=== PATIENT | male | born 1965 | race Caucasian/White ===

== ENCOUNTER 2019-08-28 08:39 | Outpatient (CLI) | payer MEDICARE, SELFPAY ==
[2019-08-28 08:54] LABS: Basophils Absolute Auto 0.06 K/mm3 (0.00-0.10); Basophils Percent Auto 0.6 % (0.0-1.0); Eosinophils Absolute Auto 0.37 K/mm3 (0.02-0.50); Eosinophils Percent Auto 3.8 % (1.0-6.0); Hematocrit 36.6 % (40.0-54.0); Hemoglobin 11.7 g/dL (14.0-18.0); Immature Granulocyte Absolute 0.06 K/mm3 (0.00-0.00); Immature Granulocyte Percent A 0.6 % (0.0-0.0); Lymphocytes Absolute Auto 1.82 K/mm3 (1.10-4.50); Lymphocytes Percent Auto 18.5 % (18.0-42.0); Mean Corpuscular Volume 87.6 fL (78.0-102.0); Mean Platelet Volume 8.8 fl (8.7-11.0); Monocytes Absolute Auto 0.85 K/mm3 (0.10-0.90); Monocytes Percent Auto 8.7 % (2.0-11.0); Neutrophils Absolute Auto 6.7 K/mm3 (1.7-7.2); Neutrophils Percent Auto 67.8 % (50.0-70.0); Platelet Count Result 458 K/mm3 (150-420); Red Blood Count 4.18 M/mm3 (4.70-6.10); Red Cell Distribution Width 13.5 % (11.6-14.4); White Blood Count 9.8 K/mm3 (4.8-10.8)
[2019-08-28 09:13] LABS: Creatinine Urine 181.48 mg/dL (40-278); MALB Creatinine Ratio 4.2 mg/g (0-30); Microalbumin Urine Random 7.8 mg/L
[2019-08-28 09:15] LABS: Hemoglobin A1C 7.4 % (<5.7)
[2019-08-28 09:43] LABS: BNP 21.5 pg/mL (0-100)
[2019-08-28 10:04] LABS: Alanine Aminotransferase 30 U/L (16-63); Albumin Level 3.3 g/dL (3.4-5.0); Alkaline Phosphatase 143 U/L (46-116); Anion Gap 11.1 mmol/L (7-16); Aspartate Amino Transferase 17 U/L (15-37); Bilirubin,Total 0.2 mg/dL (0.00-1.00); Blood Urea Nitrogen 16 mg/dL (7-18); Carbon Dioxide 32 mmol/L (21-32); Chloride 101 mmol/L (98-108); Cholesterol 181 mg/dL (0-200); Estimated Glomerular Filt Rate 53; Ferritin 48 ng/mL (26-388); Folic Acid 8.2 ng/mL (8.6->20); GGT 54 U/L (15-85); Glucose 130 mg/dL (70-99); HDL Direct 44 mg/dL (40-60); Iron 43 ug/dL (65-175); LDL Cholesterol Calculated 108 mg/dL (<130); Osmolality Calculated 293 mOsm/kg (285-295); Percent Iron Saturation 14 % (12-57); Potassium 4.1 mmol/L (3.5-5.1); Sodium 140 mmol/L (136-145); Total Protein 7.2 g/dL (6.4-8.2); Triglycerides 143 mg/dL (0-150); Vitamin B12 407 pg/mL (193-986)
[2019-08-31 20:48] LABS: CRP, High Sensitivity 6.3 mg/L (***)
[2019-09-01 11:27] LABS: Vitamin D 25 Hydroxy 28 ng/mL (30-100)
== END 2019-08-28 08:40 | disposition home or self-care (01) ==
PROVIDERS: PCP Family Medicine
DX: D64.9 Anemia, unspecified (principal); D50.9 Iron deficiency anemia, unspecified; E11.37X1 Type 2 diabetes mellitus with diabetic macular edema, resolved following treatment, right eye; E55.9 Vitamin D deficiency, unspecified; E78.5 Hyperlipidemia, unspecified; I50.9 Heart failure, unspecified; Z76.89 Persons encountering health services in other specified circumstances
CPT/HCPCS: 36415; 80053; 80061; 82043; 82306; 82607; 82728; 82746; 82977; 83036; 83540; 83550; 83880; 85025; 86141

== ENCOUNTER 2019-09-17 16:26 | Observation (INO) | payer MEDICARE, MEDICAID, SELFPAY ==
[2019-09-17] VITALS (10 sets, daily range): BP systolic 112–159; BP diastolic 68–92; PULSE 85–112; RESP 17–20; TEMP 36.4–36.7; O2SAT 94–99; BMI 41.3; BMI 42.4
--- NOTE | ~2019-09-17 | XR_ITS ---
EXAMINATION: XR chest 2V DATE: 09/17/2019 17:04 INDICATION: Emphysema and congestive heart failure presenting with shortness of breath TECHNIQUE: frontal and lateral views of the chest were obtained. COMPARISON: Chest radiograph dated 04/03/2019 FINDINGS: Persistent linear opacities in the left lower lung zone consistent with atelectasis/scarring. No new airspace opacities, pulmonary edema, pleural effusion or pneumothorax. The cardiomediastinal silhouet te is normal. Mild thoracic spondylosis with chronic mild anterior wedging of a few lower thoracic ve rtebral bodies. IMPRESSION: 1. Chronic mild atelectasis/scarring at the left lower lung zone. No acute cardiopulmonary disease. Reviewed, dictated and finalized at location A. IMPRESSION: 1. Chronic mild atelectasis/scarring at the left lower lung zone. No acute card iopulmonary disease.
--- NOTE | ~2019-09-17 | US_ITS ---
EXAMINATION: US venous doppler [facility] DATE: 09/18/2019 11:52 INDICATION: Bilateral lower limb swelling, shortness of breath TECHNIQUE: Garcia scale images without and with compression and Doppler images of the bilateral lower e xtremity veins were obtained. COMPARISON: None FINDINGS: The right common femoral vein, profunda femoral vein, femoral vein, popliteal vein, peroneal trunk, p osterior tibial veins, and greater saphenous vein are patent. The left common femoral vein, profunda femoral vein, femoral vein, popliteal vein, peroneal trunk, po sterior tibial veins, and greater saphenous vein are patent. IMPRESSION: 1. Patent bilateral lower extremity veins. No evidence of deep venous thrombosis. Reviewed, dictated and finalized at location A. IMPRESSION: 1. Patent bilateral lower extremity veins. No evidence of deep venous thrombosi s.
--- NOTE | 2019-09-17 16:32 | ECG_ITS ---
Measurements Intervals [place] Rate: 99 P: 75 [place]: 165 QRS: 24 QRSD: 103 T: 79 QT: 332 QTc: 428 Interpretive Statements SINUS RHYTHM DELAYED PRECORDIAL R/S TRANSITION BASELINE ARTIFACT- I, II, III, AVL, AVF BORDERLINE ECG Electronically Signed On 09-17-2019 17:29:02 CDT by Nicho Jurado D.O.
[2019-09-17 16:50] LABS: Basophils Absolute Auto 0.05 K/mm3 (0.00-0.10); Basophils Percent Auto 0.5 % (0.0-1.0); Eosinophils Absolute Auto 0.35 K/mm3 (0.02-0.50); Eosinophils Percent Auto 3.4 % (1.0-6.0); Hematocrit 33.5 % (40.0-54.0); Hemoglobin 10.6 g/dL (14.0-18.0); Immature Granulocyte Absolute 0.11 K/mm3 (0.00-0.00); Immature Granulocyte Percent A 1.1 % (0.0-0.0); Lymphocytes Percent Auto 12.5 % (18.0-42.0); Mean Corpuscular HGB Conc 31.6 g/dL (32.0-36.0); Mean Corpuscular Hemoglobin 27.7 pg (27.0-31.0); Mean Corpuscular Volume 87.7 fL (78.0-102.0); Mean Platelet Volume 8.9 fl (8.7-11.0); Monocytes Absolute Auto 1.03 K/mm3 (0.10-0.90); Monocytes Percent Auto 9.9 % (2.0-11.0); Neutrophils Absolute Auto 7.6 K/mm3 (1.7-7.2); Neutrophils Percent Auto 72.6 % (50.0-70.0); Platelet Count Result 335 K/mm3 (150-420); Red Blood Count 3.82 M/mm3 (4.70-6.10); Red Cell Distribution Width 13.9 % (11.6-14.4); White Blood Count 10.4 K/mm3 (4.8-10.8)
[2019-09-17 17:04] LABS: Partial Thromboplastin Time 29.2 SEC (22.3-31.6); Prothrombin Time 10.4 Seconds (9.64-11.0)
[2019-09-17 17:08] LABS: Alanine Aminotransferase 40 U/L (16-63); Albumin Level 3.3 g/dL (3.4-5.0); Alkaline Phosphatase 144 U/L (46-116); Anion Gap 9.3 mmol/L (7-16); Aspartate Amino Transferase 24 U/L (15-37); Bilirubin,Total 0.2 mg/dL (0.00-1.00); Blood Urea Nitrogen 38 mg/dL (7-18); Calcium 9.6 mg/dL (8.5-10.1); Carbon Dioxide 31 mmol/L (21-32); Chloride 101 mmol/L (98-108); Estimated Glomerular Filt Rate 41; Glucose 124 mg/dL (70-99); Lipase 255 U/L (73-393); Osmolality Calculated 294 mOsm/kg (285-295); Potassium 4.3 mmol/L (3.5-5.1); Sodium 137 mmol/L (136-145); Total Protein 7.6 g/dL (6.4-8.2)
[2019-09-17 17:10] LABS: Troponin I < 0.02 ng/mL (0.00-0.056)
[2019-09-17 17:12] LABS: BNP 30.3 pg/mL (0-100)
[2019-09-17] MEDS: IPRATROPIUM 0.5 MG/ALBUTEROL SULFATE 2.5 MG AMPUL.NEB 3 ML INHALATION ×2 (17:17→22:51)
--- NOTE | 2019-09-17 17:30 | ED.SOB ---
HPI - SOB/Dyspnea General Chief Complaint: Shortness of Breath/Dyspnea Stated Complaint: sent from doctor Source: patient Mode of arrival: ambulatory Limitations: no limitations History of Present Illness HPI Narrative: this is a 53-year-old gentleman presents from his doctor's office with some increasing peripheral edema mainly in his lower extremities apply 2+ pitting edema up to mid abel with history of COPD/asthma and has been short of breath. Denies chest pain, no fever chills no nausea vomiting no abdominal pain no diarrhea constipation. The patient's primary care physician notified our ER that he was sending over patient, in the primary care physician's office there was noted weight gain of [id number] and EKG was performed in the physician's office EKG as he described he was in atrial fibrillation with a rate of 143. Currently the patient has a history of COPD, has had a history of SVT and had a workup that showed that is related to atrial tachycardia, history of hypertension, asthma/ COPD, has a history of diabetes mellitus with a current A1c of 7.4 history of chronic renal failure with a baseline creatinine of 1.40, and history of CHF systolic dysfunction with a ejection fraction of 50 to 55%. Current EKG performed patient is in sinus rhythm with a rate of 93. MD elicited complaint: shortness of breath Pertinent past history: COPD, asthma, congestive heart failure and diabetes Onset (ago): day(s) Timing: constant Severity: moderate Exacerbating factors: nothing and exertion Relieving factors: oxygen, rest, bronchodilators, upright position and cool air Known history of: COPD Associated symptoms: denies other symptoms Related Data Allergies Allergy/AdvReac Type Severity Reaction Status Date / Time No Known Allergies Allergy Unverified 11/05/18 16:46 Review of Systems Review of Systems: All systems reviewed & are unremarkable except as noted in HPI and below PMFSH Past Medical History Medical History Asthma CHF (congestive heart failure) COPD (chronic obstructive pulmonary disease) Diabetes mellitus HTN (hypertension) Family History Family History Mother Hypertension Family history of alcoholism Father Family history of aortic aneurysm Social History Social History Smoking status: Former smoker Smoking end date: 04/01/15 Alcohol intake: never Exam Const: General: no acute distress and alert Orientation/consciousness: patient oriented x3 HENMT: Head: normal to inspection Eyes: Conjunctivae: conjunctivae normal Pupils: Equal, round and reactive pupils present Neck: Neck: normal visual inspection, no lymphadenopathy and no meningeal signs Chest: Chest palpation & inspection: normal inspection of the chest Resp: Effort & Inspection: normal respiratory effort Auscultation: clear to auscultation bilaterally and diminished lung sounds Cardio: Rate: regular rate Rhythm: regular rhythm GI: GI Palp: Yes Soft to palpation Percussion: Yes normal to percussion Auscultation: normal bowel sounds Back/Spine/Pelvis: Back: no CVA tenderness Skin: General skin exam: normal color Rashes: no rashes Neuro: General: patient oriented x3, moves all extremities and no meningeal signs Extrem: General: edema ( 2+ pitting edema up to mid abel bilaterally lower extremity) Psych: Mental Status: mental status grossly normal Thought content: Yes Normal thought content present Course Course Emergency Course: reassessment of patient patient appears comfortable received nebulizer treatment and advised that he was going to be admitted for observation. Vital Signs Vital signs: Vital Signs Temperature 36.7 C 09/17/19 16:37 Pulse Rate 95 09/17/19 16:37 Respiratory Rate 20 09/17/19 16:37 Blood Pressure 146/83 H 09/17/19 16:37 Pul
[2019-09-17] MEDS: FUROSEMIDE INJ 40 MG/4 ML VIAL IV PUSH (18:59)
[2019-09-17] MEDS: methylPREDNISolone SOD SUCC 125 MG VIAL IV PUSH (18:59)
--- NOTE | 2019-09-17 19:30 | ADMGEN ---
This patient, Reinaldo Caraballo, was admitted to 2nd Floor Room 227-2. Patient oriented to hospital policies and general routines including ID bracelet, bed and alarms, visiting hours, pain management, procedures, bathroom and other care routines, personal items, smoking policy, room service/diet, and visiting hours. Valuables list has been completed. Information on how to activate the Rapid Response Team has been discussed. Patient encouraged to report perceived risks to care and to ask questions if they do not understand what they are told or what they should do.
--- NOTE | 2019-09-17 19:57 | PC.NURSE ---
pt requested peanut butter and imani crackers, fruit cup, and diet soda. denies any pain or sob at this time. call light and belongings within reach
[2019-09-17 20:15] LABS: Troponin I < 0.02 ng/mL (0.00-0.056)
[2019-09-17 20:56] LABS: Glucose Point of Care 200 (65-105)
--- NOTE | 2019-09-17 21:05 | PC.NURSE ---
pt sitting up in bed, assisted with oxygen tubing to home cpap machine, denies any sob, or pain at this time.
--- NOTE | 2019-09-17 22:37 | PC.NURSE ---
pt sleeping, respirations even and regular, no evidence of distress noted at this time
[2019-09-17 23:22] LABS: Troponin I < 0.02 ng/mL (0.00-0.056)
--- NOTE | 2019-09-18 00:25 | PC.NURSE ---
pt sitting on side of bed, denies any sob or pain, ice chips given per request
--- NOTE | 2019-09-18 02:05 | PC.NURSE ---
pt resting in bed, no evidence of distress noted at this time
[2019-09-18 04:00] VITALS: BP 140/93; PULSE 100; RESP 20; O2SAT 95
--- NOTE | 2019-09-18 04:57 | PC.NURSE ---
pt sitting on side of bed watching tv, denies any sob or pain at this time
--- NOTE | 2019-09-18 07:41 | ECG_ITS ---
Measurements Intervals [place] Rate: 105 P: 72 [place]: 190 QRS: 60 QRSD: 104 T: 76 QT: 317 QTc: 420 Interpretive Statements SINUS TACHYCARDIA ATRIAL PREMATURE COMPLEXES DELAYED PRECORDIAL R/S TRANSITION BASELINE ARTIFACT- III, AVL, AVF ABNORMAL ECG Electronically Signed On 09-18-2019 6:58:40 CDT by Nicho Jurado D.O.
[2019-09-18 07:45] VITALS: BP 143/97; PULSE 106; RESP 20; TEMP 36.4; O2SAT 94
[2019-09-18 07:49] LABS: Glucose Point of Care 227 (65-105)
[2019-09-18 08:26] LABS: Basophils Absolute Auto 0.02 K/mm3 (0.00-0.10); Basophils Percent Auto 0.2 % (0.0-1.0); Hematocrit 35.8 % (40.0-54.0); Hemoglobin 11.3 g/dL (14.0-18.0); Immature Granulocyte Percent A 0.9 % (0.0-0.0); Lymphocytes Absolute Auto 0.55 K/mm3 (1.10-4.50); Lymphocytes Percent Auto 4.8 % (18.0-42.0); Mean Corpuscular HGB Conc 31.6 g/dL (32.0-36.0); Mean Corpuscular Hemoglobin 27.5 pg (27.0-31.0); Mean Corpuscular Volume 87.1 fL (78.0-102.0); Mean Platelet Volume 9.5 fl (8.7-11.0); Monocytes Absolute Auto 0.17 K/mm3 (0.10-0.90); Monocytes Percent Auto 1.5 % (2.0-11.0); Neutrophils Absolute Auto 10.6 K/mm3 (1.7-7.2); Neutrophils Percent Auto 92.6 % (50.0-70.0); Platelet Count Result 366 K/mm3 (150-420); Red Blood Count 4.11 M/mm3 (4.70-6.10); Red Cell Distribution Width 13.8 % (11.6-14.4); White Blood Count 11.4 K/mm3 (4.8-10.8)
[2019-09-18] MEDS: SPIRONOLACTONE 25 MG TABLET 100 MG PO (09:05)
[2019-09-18 09:06] LABS: Alanine Aminotransferase 40 U/L (16-63); Albumin Level 3.5 g/dL (3.4-5.0); Alkaline Phosphatase 142 U/L (46-116); Anion Gap 13.1 mmol/L (7-16); Aspartate Amino Transferase 25 U/L (15-37); Bilirubin,Total 0.3 mg/dL (0.00-1.00); Blood Urea Nitrogen 43 mg/dL (7-18); Carbon Dioxide 27 mmol/L (21-32); Chloride 98 mmol/L (98-108); Estimated CRCL calculation 72 ml/min; Estimated Glomerular Filt Rate 46; Glucose 209 mg/dL (70-99); Osmolality Calculated 292 mOsm/kg (285-295); Potassium 5.1 mmol/L (3.5-5.1); Sodium 133 mmol/L (136-145); Total Protein 7.6 g/dL (6.4-8.2)
[2019-09-18] MEDS: LOSARTAN POTASSIUM 50 MG TABLET 100 MG PO (09:06)
--- NOTE | 2019-09-18 09:11 | PC.NURSE ---
sitting on edge of bed up and independent in room, slight wood noted, wears 3 L NC oxygen as needed as per home dose, currenlty off, monitor ST noted
[2019-09-18] MEDS: ZAFIRLUKAST 20 MG TABLET PO (10:54)
[2019-09-18] MEDS: PANTOPRAZOLE 40 MG TABLET PO (10:54)
--- NOTE | 2019-09-18 10:54 | PHAR ---
MEDS FROM HOME IDENTIFIED tRELEGY ELLIPTA 100 MCG/62.5 MCG/25 MCG DALIRESP 500 MCG 1 TABLET DAILY ([facility])
[2019-09-18] MEDS: FUROSEMIDE INJ 40 MG/4 ML VIAL IV PUSH (11:01)
--- NOTE | 2019-09-18 11:02 | PC.NURSE ---
pateint requesting transfer to where furniture sander is in [place],hospitalist aware
--- NOTE | 2019-09-18 11:14 | PC.NURSE ---
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
[2019-09-18] MEDS: ROFLUMILAST 500 MCG TABLET PO (11:22)
[2019-09-18] MEDS: ENOXAPARIN 40 MG/0.4 ML SYRINGE SUB-Q (11:23)
[2019-09-18] MEDS: PHARMACIST COMMUNICATION ORDER 1 EACH XX (11:24)
--- NOTE | 2019-09-18 11:25 | PC.NURSE ---
Educated on fluid restriction and low sodium diet
--- NOTE | 2019-09-18 11:42 | PC.NURSE ---
[facility] accepts patient in transfer, no room assignment at this time
[2019-09-18 11:56] LABS: Glucose Point of Care 198 (65-105)
[2019-09-18 12:00] VITALS: PULSE 130; RESP 22; TEMP 36.6; O2SAT 94
--- NOTE | 2019-09-18 12:05 | PC.NURSE ---
noted elevation in heart rate to 120-140's, feeling anxious, hospitalist aware
--- NOTE | 2019-09-18 12:22 | PC.NURSE ---
Report to Pamela at [facility]
--- NOTE | 2019-09-18 12:23 | PM.SD ---
Same Day Admit/Disch: HPI History of Present Illness Chief complaint: COPD Narrative: Reinaldo Caraballo is a 53 year old male that was a direct admit from his primary care physician's office Dr. Zamudio. patient has a past medical history of COPD, SVT, hypertension, diabetes, chronic renal failure, congestive heart failure with EF of 50-55%. according to patient , for the last month he has developed edema in his lower extremities and also increase shortness of breath on exertion. Patient noted that he has gained approximately 30 lb within a month. He continuously used 4 L of nasal cannula due to his COPD but noted that his shortness of breath worsened on and exertion. He also noted that he has had lower extremity edema in the past and usually it resolves when he takes his Lasix. This time it did not resolve patient's acid maker is Dr. Osuna he is requesting that he be transferred to [facility] where his acid maker practices at. While patient was in the ED a chest x-ray was completed which was unremarkable, EKG indicated sinus tach troponin was negative. Current vital signs are 143/97, 106, 20, 97.6, 94% on 4 L nasal cannula. this patient has been accepted by [facility] the accepting physician is Dr. Cabello. Dr. Osuna will be consulted once he arrives. patient continues to complain of shortness of breath and noted that his condition has not improved since admission PMFSH Past Medical History Medical History Asthma CHF (congestive heart failure) COPD (chronic obstructive pulmonary disease) Diabetes mellitus HTN (hypertension) Family History Family History Mother Hypertension Family history of alcoholism Father Family history of aortic aneurysm Social History Social History Smoking status: Former smoker Tobacco type: cigarettes Smoking end date: 04/01/15 Alcohol intake: never Substance use: former Substance use type: crack/cocaine Last use: 2010 Gender identity (if verbalized by the patient): Male Spiritual care concerns: No Same Day Admit/Disch: Med Pre-admit Medications Home Medications Medication Instructions Recorded Confirmed Type albuterol sulfate [Ventolin HFA] 1 - 2 puff INHALATION QID 09/17/19 09/17/19 History diltiazem HCl [Cartia XT] 240 mg PO BID 09/17/19 09/17/19 History esomeprazole magnesium [Nexium 20 mg PO DAILY 09/17/19 09/17/19 History 24HR] fluticasone propionate 50 mcg INTRANASAL DAILY 09/17/19 09/17/19 History sjdjpzidsht-wtywzfkhv-yognmubc 1 inh INHALATION DAILY 09/17/19 09/17/19 History [Trelegy Ellipta] furosemide 40 mg PO QPM 09/17/19 09/17/19 History furosemide 60 mg PO QAM 09/17/19 09/17/19 History insulin aspart U-100 [Novolog 1 unit SUBCUT AC 09/17/19 09/17/19 History Flexpen U-100 Insulin] ipratropium-albuterol 3 ml INHALATION QID 09/17/19 09/17/19 History losartan 100 mg PO DAILY 09/17/19 09/17/19 History metformin 1,000 mg PO BID 09/17/19 09/17/19 History roflumilast [Daliresp] 500 mcg PO DAILY 09/17/19 09/17/19 History spironolactone 100 mg PO DAILY 09/17/19 09/17/19 History zafirlukast 20 mg PO Q12H 09/17/19 09/17/19 History Exam Narrative: Exam Narrative: General: obese with labored breathing HEENT: Normocephalic, atraumatic. PERRL, EOMI. Sclerae anicteric. Oral mucosa moist. Oropharynx clear. Neck: Supple. Respiratory: Lungs sounds with expiratory wheezing and diminished by lower lobes Cardiovascular: sinus tach Gastrointestinal: Abdomen is soft, nontender, and nondistended with positive bowel sounds. No organomegaly. Skin: Warm, dry, and slightly pale.. No rash or lesions on limited exam. Extremities: No cyanosis, clubbing, or edema. Radial and pedal pulses intact. Neurological: Alert. Cranial nerves 2-12 are grossly intact. No gross focal deficits to
[2019-09-18 12:29] VITALS: BP 147/86
[2019-09-18] MEDS: LORAZEPAM INJ 2 MG/ML VIAL 1 MG IV PUSH (12:38)
--- NOTE | 2019-09-18 12:54 | PC.NURSE ---
diltazem and ativan given as ordered, drowsy, more calm, heart ratae down to 105 at this time
--- NOTE | 2019-09-18 13:05 | PC.NURSE ---
Report to EMS for transfer, up date called to [facility], noted to have itches open a scab to left wrist area, covered with gauze
--- NOTE | 2019-09-18 23:09 | PM.EVENT ---
Event Note Event Note Event Note: Patient states that his edema and shortness of breath have not significantly improved overnight. He received 40 of Lasix IV last night. Intake matches output over 12 hours. He denies chest pain. Regular rhythm without murmur or gallop. Heart rate up to 107 this morning. Lungs clear to auscultation without increased work of breathing. Three to 4+ pitting edema in the lower extremities bilaterally. Extremities are warm dry and pink no erythema. If further diuresis cannot be affected by IV Lasix, he may need more evaluation by Cardiology and/or Nephrology. With an albumin of 3.3 nephrotic syndrome seems unlikely. Will obtain UA, urine protein, and rule out a PE. I have reviewed the chart and examined the patient. I discussed the patient's care with Josh Porter APN and agree with her assessment plan.
== END 2019-09-18 13:05 | disposition short-term general hospital (02) ==
LOC: CHSED 17:38 → CHS2ND 17:46
PROVIDERS: Admitting Provider Emergency Medicine; Emergency Provider Emergency Medicine; PCP Family Medicine; Visit Provider Emergency Medicine
DX: R60.0 Localized edema (principal); I13.0 Hypertensive heart and chronic kidney disease with heart failure and stage 1 through stage 4 chronic kidney disease, or unspecified chronic kidney disease; I50.22 Chronic systolic (congestive) heart failure; E11.22 Type 2 diabetes mellitus with diabetic chronic kidney disease; N18.9 Chronic kidney disease, unspecified; I47.1 Supraventricular tachycardia; J44.9 Chronic obstructive pulmonary disease, unspecified; Z99.81 Dependence on supplemental oxygen
CPT/HCPCS: 36415; 71046; 80053; 83690; 83735; 83880; 84484; 85025; 85610; 85730; 93005; 93970; 94640; 96372; 96374; 96375; 96376; 99285; A9270; G0378; J1650; J1815; J1940; J2060; J2930

== ENCOUNTER 2019-09-30 14:49 | Outpatient (CLI) | payer MEDICARE, SELFPAY ==
[2019-09-30 15:00] LABS: Basophils Absolute Auto 0.02 K/mm3 (0.00-0.10); Basophils Percent Auto 0.1 % (0.0-1.0); Eosinophils Absolute Auto 0.11 K/mm3 (0.02-0.50); Eosinophils Percent Auto 0.7 % (1.0-6.0); Hematocrit 36.2 % (40.0-54.0); Hemoglobin 11.5 g/dL (14.0-18.0); Immature Granulocyte Absolute 0.27 K/mm3 (0.00-0.00); Immature Granulocyte Percent A 1.8 % (0.0-0.0); Lymphocytes Absolute Auto 1.21 K/mm3 (1.10-4.50); Lymphocytes Percent Auto 7.9 % (18.0-42.0); Mean Corpuscular HGB Conc 31.8 g/dL (32.0-36.0); Mean Corpuscular Hemoglobin 28.3 pg (27.0-31.0); Mean Corpuscular Volume 88.9 fL (78.0-102.0); Monocytes Absolute Auto 0.79 K/mm3 (0.10-0.90); Monocytes Percent Auto 5.2 % (2.0-11.0); Neutrophils Absolute Auto 12.9 K/mm3 (1.7-7.2); Neutrophils Percent Auto 84.3 % (50.0-70.0); Platelet Count Result 370 K/mm3 (150-420); Red Blood Count 4.07 M/mm3 (4.70-6.10); Red Cell Distribution Width 14.1 % (11.6-14.4); White Blood Count 15.3 K/mm3 (4.8-10.8)
[2019-09-30 15:39] LABS: Anion Gap 10.5 mmol/L (7-16); Blood Urea Nitrogen 27 mg/dL (7-18); Calcium 9.4 mg/dL (8.5-10.1); Carbon Dioxide 33 mmol/L (21-32); Chloride 97 mmol/L (98-108); Estimated Glomerular Filt Rate 56; Glucose 206 mg/dL (70-99); Osmolality Calculated 293 mOsm/kg (285-295); Potassium 4.5 mmol/L (3.5-5.1); Sodium 136 mmol/L (136-145)
== END 2019-09-30 14:50 | disposition home or self-care (01) ==
PROVIDERS: PCP Family Medicine
DX: I50.21 Acute systolic (congestive) heart failure (principal)
CPT/HCPCS: 36415; 80048; 85025

== ENCOUNTER 2019-10-30 13:17 | Outpatient (RCR) | payer MEDICARE, MEDICAID, SELFPAY ==
[2019-10-30 14:37] VITALS: BP 103/75; PULSE 96; RESP 18; O2SAT 94; BMI 38.0
[2019-10-30 14:58] VITALS: PULSE 96
[2019-11-06 13:05] VITALS: PULSE 155
--- NOTE | 2019-11-06 13:05 | PCCPR ---
PT ARRIVED TO PULMONARY REHAB UPON VITAL SIGN ASSESSMENT, NOTED SPORADIC SPO2, PLACED PATIENT ON TELEMETRY AND REVEALED SINUS TACHYCARDIA WITH HR OF 155. PT ASYMPTOMATIC AND HAS STABLE B/P OF 120/78. CONFIRMS TAKING ALL PRESCRIBED MEDICATIONS TODAY. NOTIFIED DR. SAEED'S NURSE RODRIGO AND FAXED PRINTED TELEMETRY STRIPS. 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 WALLACE , RECENTLY WORE HEART MONITOR X30 DAYS, HIGHEST RATE NOTED WAS 111bpm. DR. SAEED RETURNED CALL AND ORDERED PATIENT TO ER, PT BEGRUDGINGLY AGREES, STATES, IM FINE, THEY WONT BE ABLE TO DO ANYTHING ABOUT IT. PT TRANSPORTED VIA W/C TO ER, JONNY PIZANO AND DR. KINSEY GIVEN REPORT.
== END 2019-11-06 15:00 | disposition home or self-care (01) ==
LOC: CHSCARD 13:17
PROVIDERS: PCP Family Medicine; Visit Provider Family Medicine
DX: J44.9 Chronic obstructive pulmonary disease, unspecified (principal); I50.30 Unspecified diastolic (congestive) heart failure; I48.91 Unspecified atrial fibrillation
CPT/HCPCS: 97150; G0424

== ENCOUNTER 2019-11-02 07:00 | Outpatient (CLI) | payer MEDICARE, SELFPAY ==
[2019-11-02 13:31] LABS: Anion Gap 10.9 mmol/L (7-16); Blood Urea Nitrogen 43 mg/dL (7-18); Calcium 10.2 mg/dL (8.5-10.1); Carbon Dioxide 31 mmol/L (21-32); Chloride 100 mmol/L (98-108); Estimated Glomerular Filt Rate 36; Glucose 96 mg/dL (70-99); Osmolality Calculated 294 mOsm/kg (285-295); Potassium 4.9 mmol/L (3.5-5.1); Sodium 137 mmol/L (136-145)
== END 2019-11-02 07:01 | disposition home or self-care (01) ==
PROVIDERS: PCP Family Medicine; Visit Provider Internal Medicine Cardiovascular Disease
DX: Z79.899 Other long term (current) drug therapy (principal)
CPT/HCPCS: 36415; 80048

== ENCOUNTER 2019-11-06 13:30 | Emergency (ER) | payer MEDICARE, MEDICAID, SELFPAY ==
--- NOTE | ~2019-11-06 | XR_ITS ---
EXAMINATION: XR chest 2V DATE: 11/06/2019 14:31 INDICATION: Tachycardia TECHNIQUE: PA and lateral views of the chest are obtained. COMPARISON: 09/17/2019 FINDINGS: The lungs are free of acute opacities. There is chronic subsegmental atelectasis of the lef t lung base. There is no pleural effusion or pneumothorax. The cardiomediastinal silhouette is normal . There is mild thoracic spondylosis. Cranial migration of the right humeral head with respect to the glenoid may reflect rotator cuff tear. IMPRESSION: 1. No acute cardiopulmonary abnormality. Reviewed, dictated and finalized at location B.
--- NOTE | 2019-11-06 13:39 | ED.SOB ---
HPI - SOB/Dyspnea General Chief Complaint: Arrhythmia/Palpitations Stated Complaint: SOB Time Seen by Provider: 11/06/19 13:39 Source: patient Mode of arrival: wheelchair Limitations: no limitations Related Data Home Medications Medication Instructions Recorded Confirmed Daliresp 500 mcg PO DAILY 09/17/19 11/06/19 Trelegy Ellipta 1 inh INHALATION DAILY 09/17/19 11/06/19 albuterol sulfate [Ventolin HFA] 1 - 2 puff INHALATION QID 09/17/19 11/06/19 diltiazem HCl [Cartia XT] 240 mg PO BID 09/17/19 11/06/19 esomeprazole magnesium [Nexium 20 mg PO DAILY 09/17/19 11/06/19 24HR] fluticasone propionate 50 mcg INTRANASAL DAILY 09/17/19 11/06/19 furosemide 40 mg PO QPM 09/17/19 11/06/19 furosemide 60 mg PO QAM 09/17/19 11/06/19 insulin aspart U-100 [Novolog 1 unit SUBCUT AC 09/17/19 11/06/19 Flexpen U-100 Insulin] ipratropium-albuterol 3 ml INHALATION QID 09/17/19 11/06/19 losartan 100 mg PO DAILY 09/17/19 11/06/19 metformin 1,000 mg PO BID 09/17/19 11/06/19 spironolactone 100 mg PO DAILY 09/17/19 11/06/19 zafirlukast 20 mg PO Q12H 09/17/19 11/06/19 Allergies Allergy/AdvReac Type Severity Reaction Status Date / Time No Known Allergies Allergy Unverified 11/05/18 16:46 Review of Systems Constitutional: Constitutional: Denies chills and Denies fever(s) Eyes: Eyes: Denies change in vision and Denies photophobia ENT: Denies dysphagia, Denies nasal congestion and Denies sore throat Cardiovascular: Cardiovascular: Denies chest pain, Reports rapid heart rate and Denies radiating jaw, neck or arm pain Respiratory: Respiratory: Denies cough, Denies dyspnea and Denies wheezing Gastrointestinal: Gastrointestinal: Denies abdominal pain, Denies nausea and Denies vomiting Genitourinary: Genitourinary: Denies hematuria, Denies dysuria and Denies urinary frequency Musculoskeletal: Musculoskeletal: Denies back pain, Denies arthralgias and Denies joint swelling Integumentary/Breasts: Skin/Breast: Denies pruritus, Denies erythema and Denies rash Neurologic: Denies vertigo, Denies dizziness, Denies syncope and Denies weakness Hematologic/Lymphatic: Hematologic/Lymphatic: Denies easy bleeding and Denies easy bruising Allergic/Immunologic: Allergic/Immunologic: Denies lip swelling, Denies throat swelling and Denies tongue swelling [facility] Past Medical History Medical History (Updated 11/06/19 @ 14:57 by Suresh Epstein MD) Asthma CHF (congestive heart failure) COPD (chronic obstructive pulmonary disease) Diabetes mellitus HTN (hypertension) On home oxygen therapy 3 L/m Surgical History Surgical History History of back surgery Social History Social History Smoking status: Former smoker Tobacco type: cigarettes Second hand tobacco smoke exposure: No Smoking end date: 04/01/15 Alcohol intake: never Substance use: former Substance use type: crack/cocaine Last use: 2010 Gender identity (if verbalized by the patient): Male Spiritual care concerns: No Exam Const: General: no acute distress and alert Nutritional Appearance: obese Orientation/consciousness: patient oriented x3 Limitations: no limitations HENMT: Face and sinus: normal facial exam Mouth: Yes moist mucous membranes Eyes: Conjunctivae: conjunctivae normal Pupils: Equal, round and reactive pupils present EOM: EOMs intact bilaterally Resp: Effort & Inspection: normal respiratory effort and not labored Auscultation: clear to auscultation bilaterally, no rales, no rhonchi and no wheezes Cardio: Rate: regular rate Rhythm: regular rhythm Heart sounds: no murmurs Skin: General skin exam: normal color, no jaundice and no pallor Rashes: no rashes Neuro: General: patient oriented x3, moves all extremities, no focal motor deficits and CN's II-XI intact bilaterally Speech: normal speech Extrem: General: normal to inspect
[2019-11-06 13:40] VITALS: BP 125/77; PULSE 90; RESP 20; TEMP 36.8; O2SAT 96
--- NOTE | 2019-11-06 13:40 | ECG_ITS ---
Measurements Intervals [place] Rate: 148 P: 20 [place]: 100 QRS: -9 QRSD: 105 T: 253 QT: 328 QTc: 516 Interpretive Statements ATRIAL FLUTTER/TACHYCARDIA WITH RAPID VENTRICULAR RESPONSE DELAYED PRECORDIAL R/S TRANSITION BORDERLINE ST-T WAVE ABNORMALITY- INF/HIGH LAT LEADS BASELINE WANDER- I, III ABNORMAL ECG Electronically Signed On 11-06-2019 15:55:11 CDT by Nicho Jurado D.O.
[2019-11-06 14:01] LABS: Basophils Absolute Auto 0.06 K/mm3 (0.00-0.10); Basophils Percent Auto 0.7 % (0.0-1.0); Eosinophils Absolute Auto 0.14 K/mm3 (0.02-0.50); Eosinophils Percent Auto 1.7 % (1.0-6.0); Hematocrit 36.3 % (40.0-54.0); Hemoglobin 11.4 g/dL (14.0-18.0); Immature Granulocyte Absolute 0.06 K/mm3 (0.00-0.00); Immature Granulocyte Percent A 0.7 % (0.0-0.0); Lymphocytes Percent Auto 16.5 % (18.0-42.0); Mean Corpuscular HGB Conc 31.4 g/dL (32.0-36.0); Mean Corpuscular Hemoglobin 26.6 pg (27.0-31.0); Mean Corpuscular Volume 84.6 fL (78.0-102.0); Monocytes Absolute Auto 0.94 K/mm3 (0.10-0.90); Monocytes Percent Auto 11.1 % (2.0-11.0); Neutrophils Absolute Auto 5.9 K/mm3 (1.7-7.2); Neutrophils Percent Auto 69.3 % (50.0-70.0); Platelet Count Result 381 K/mm3 (150-420); Red Blood Count 4.29 M/mm3 (4.70-6.10); Red Cell Distribution Width 14.4 % (11.6-14.4); White Blood Count 8.5 K/mm3 (4.8-10.8)
[2019-11-06 14:15] LABS: D Dimer 0.27 mg/L (0.19-0.50)
[2019-11-06 14:23] LABS: Alanine Aminotransferase 26 U/L (16-63); Albumin Level 3.4 g/dL (3.4-5.0); Alkaline Phosphatase 118 U/L (46-116); Anion Gap 11.1 mmol/L (7-16); Aspartate Amino Transferase 19 U/L (15-37); Bilirubin,Total 0.3 mg/dL (0.00-1.00); Blood Urea Nitrogen 40 mg/dL (7-18); Calcium 9.7 mg/dL (8.5-10.1); Carbon Dioxide 29 mmol/L (21-32); Chloride 101 mmol/L (98-108); Estimated CRCL calculation 62 ml/min; Estimated Glomerular Filt Rate 40; Glucose 89 mg/dL (70-99); Osmolality Calculated 292 mOsm/kg (285-295); Potassium 4.1 mmol/L (3.5-5.1); Sodium 137 mmol/L (136-145); Total Protein 7.2 g/dL (6.4-8.2)
[2019-11-06 14:28] LABS: Partial Thromboplastin Time 30.3 SEC (22.3-31.6); Prothrombin Time 10.8 Seconds (9.64-11.0)
[2019-11-06 14:29] LABS: Troponin I < 0.02 ng/mL (0.00-0.056)
[2019-11-06 14:30] LABS: BNP 35.5 pg/mL (0-100)
--- NOTE | 2019-11-06 14:35 | PC.NURSE ---
Pt up out of bed, disconnected himself from the monitor. This RN in room and pt states that he is leaving and doesnt want to be here. EDP in to speak with pt. Pt walked out of department. Pts radiology physician assistant called. edp speaking with DR. Duarte, o/c radiology physician assistant for [facility].
[2019-11-06 14:44] VITALS: PULSE 98; RESP 20; O2SAT 96
== END 2019-11-06 14:30 | disposition left against medical advice (07) ==
PROVIDERS: Emergency Provider Emergency Medicine; PCP Family Medicine
DX: I47.1 Supraventricular tachycardia (principal); I50.9 Heart failure, unspecified; J44.9 Chronic obstructive pulmonary disease, unspecified; E11.9 Type 2 diabetes mellitus without complications; Z99.81 Dependence on supplemental oxygen; Z87.891 Personal history of nicotine dependence; I11.0 Hypertensive heart disease with heart failure
CPT/HCPCS: 36415; 71046; 80053; 83880; 84484; 85025; 85380; 85610; 85730; 93005; 99283; 99284

== ENCOUNTER 2020-01-19 14:11 | Outpatient (CLI) | payer MEDICARE, SELFPAY ==
[2020-01-24 21:08] LABS: Blastomyces Antibody Negative (Negative)
[2020-01-26 17:29] LABS: Coccidioides Ab to F Ag (IgG) NEGATIVE; Coccidioides Ab to TP Ag (IgM) NEGATIVE
== END 2020-01-19 14:12 | disposition home or self-care (01) ==
PROVIDERS: PCP Family Medicine; Visit Provider Internal Medicine Pulmonary Disease
DX: R91.1 Solitary pulmonary nodule (principal)
CPT/HCPCS: 36415; 86606; 86612; 86635; 86698

== ENCOUNTER 2020-06-06 09:29 | Outpatient (CLI) | payer MEDICARE, MEDICAID, SELFPAY ==
--- NOTE | ~2020-06-06 | US_ITS ---
EXAMINATION: US venous doppler [facility] EXAM DATE: 06/06/2020 12:08 INDICATION: Left leg pain. TECHNIQUE: Multiple grayscale, color flow and Doppler images of the left lower extremity deep venous system were obtained and reviewed. Comparison is made to prior examination from 11/18/2019. FINDINGS: The left common femoral, femoral and profunda veins demonstrate normal color flow, respirat ory variation, augmentation and compressibility. Compressibility, color flow confirmed within the le ft popliteal, posterior tibial, peroneal, and greater saphenous veins. IMPRESSION: 1. No left lower extremity deep venous thrombosis. Reviewed, dictated and finalized at location B. 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
[2020-06-06 09:40] LABS: Basophils Absolute Auto 0.08 K/mm3 (0.00-0.10); Basophils Percent Auto 0.9 % (0.0-1.0); Eosinophils Absolute Auto 0.16 K/mm3 (0.02-0.50); Eosinophils Percent Auto 1.8 % (1.0-6.0); Hematocrit 40.3 % (40.0-54.0); Hemoglobin 12.6 g/dL (14.0-18.0); Immature Granulocyte Absolute 0.12 K/mm3 (0.00-0.00); Immature Granulocyte Percent A 1.4 % (0.0-0.0); Lymphocytes Absolute Auto 1.45 K/mm3 (1.10-4.50); Lymphocytes Percent Auto 16.7 % (18.0-42.0); Mean Corpuscular HGB Conc 31.3 g/dL (32.0-36.0); Mean Corpuscular Hemoglobin 27.7 pg (27.0-31.0); Mean Corpuscular Volume 88.6 fL (78.0-102.0); Mean Platelet Volume 8.4 fl (8.7-11.0); Monocytes Absolute Auto 0.66 K/mm3 (0.10-0.90); Monocytes Percent Auto 7.6 % (2.0-11.0); Neutrophils Absolute Auto 6.2 K/mm3 (1.7-7.2); Neutrophils Percent Auto 71.6 % (50.0-70.0); Platelet Count Result 425 K/mm3 (150-420); Red Blood Count 4.55 M/mm3 (4.70-6.10); Red Cell Distribution Width 13.2 % (11.6-14.4); White Blood Count 8.7 K/mm3 (4.8-10.8)
[2020-06-06 10:04] LABS: D Dimer 0.65 mg/L (0.19-0.50)
[2020-06-06 10:08] LABS: Alanine Aminotransferase 31 U/L (16-63); Albumin Level 3.4 g/dL (3.4-5.0); Alkaline Phosphatase 117 U/L (46-116); Anion Gap 8 mmol/L (8-16); Aspartate Amino Transferase 12 U/L (15-37); Bilirubin,Total 0.4 mg/dL (0.00-1.00); Blood Urea Nitrogen 35 mg/dL (7-18); Calcium 10.2 mg/dL (8.5-10.1); Carbon Dioxide 29 mmol/L (21-32); Chloride 102 mmol/L (98-108); Estimated Glomerular Filt Rate 41; Glucose 103 mg/dL (70-99); Osmolality Calculated 296 mOsm/kg (285-295); Potassium 4.2 mmol/L (3.5-5.1); Prostate Specific Antigen 2.1 ng/mL (< OR = 4.0); Sodium 139 mmol/L (136-145); Total Protein 7.6 g/dL (6.4-8.2)
== END 2020-06-06 09:30 | disposition home or self-care (01) ==
PROVIDERS: PCP Family Medicine; Visit Provider Family Medicine
DX: R79.1 Abnormal coagulation profile (principal); M79.605 Pain in left leg; I10 Essential (primary) hypertension; Z12.5 Encounter for screening for malignant neoplasm of prostate
CPT/HCPCS: 36415; 80053; 84153; 85025; 85380; 93971; G0103

== ENCOUNTER 2020-07-06 07:32 | Outpatient (CLI) | payer MEDICARE, SELFPAY ==
[2020-07-10 13:05] LABS: Blastomyces Antibody Negative (Negative)
[2020-07-13 16:56] LABS: Coccidioides Ab to F Ag (IgG) NEGATIVE; Coccidioides Ab to TP Ag (IgM) NEGATIVE
== END 2020-07-06 07:33 | disposition home or self-care (01) ==
LOC: CHSLAB 07:35
PROVIDERS: PCP Family Medicine
DX: R91.1 Solitary pulmonary nodule (principal)
CPT/HCPCS: 36415; 86606; 86612; 86635; 86698

== ENCOUNTER 2020-07-23 02:05 | Inpatient (IN) | payer MEDICARE, MEDICAID, SELFPAY ==
[2020-07-23] VITALS (10 sets, daily range): BP systolic 132–160; BP diastolic 83–97; PULSE 101–110; RESP 16–26; TEMP 36–36.8; O2SAT 91–95
--- NOTE | ~2020-07-23 | XR_ITS ---
EXAMINATION: XR chest 2V DATE: 07/23/2020 03:09 INDICATION: Dyspnea. TECHNIQUE: Frontal and lateral views of the chest were obtained. COMPARISON: Chest 2 views 11/06/2019, chest CT 01/14/2019 FINDINGS: There are mild airspace opacities in the lower lung zones. No pleural effusion or pneumotho rax. The heart size is normal. There is a left chest wall pacer with leads in the right atrium and ri ght ventricle. There are old healed bilateral rib fractures. IMPRESSION: 1. Mild airspace opacities in the lower lung zones, consistent with atelectasis versus pneumonia. Reviewed, dictated and finalized at location A.
--- NOTE | ~2020-07-23 | XR_ITS ---
EXAMINATION: XR chest 1V portable DATE: 07/24/2020 07:43 INDICATION: Hypoxia. Hypercapnia. Shortness of breath. TECHNIQUE: A single frontal view of the chest was obtained. COMPARISON: Chest 2 views 07/23/2020, chest CT 01/14/2019 FINDINGS: There are mild airspace opacities in the lower mid and lower lung zones. No pleural effusio n or pneumothorax. Cardiomegaly is noted. There is a left chest wall pacer with leads in the right at rium and right ventricle. IMPRESSION: 1. Worsened mild airspace opacities in the mid and lower lung zones, consistent with pulmonary edema versus pneumonia. 2. Cardiomegaly. Reviewed, dictated and finalized at location A.
--- NOTE | 2020-07-23 02:12 | ED.WEAKNESS ---
HPI - Weakness General Chief complaint: Shortness of Breath/Dyspnea Stated complaint: HIGH BLOOD SUGAR Time Seen by Provider: 07/23/20 02:12 Source: patient Mode of arrival: EMS Limitations: no limitations History of Present Illness HPI Narrative: 54-year-old man with a history of type 2 diabetes, COPD, congestive heart failure, and chronic renal failure brought to the emergency department today by EMS after being called for high blood sugars. Patient states that he has not felt well for the last few days mostly fatigue and a cough. He states that he has not been taking his medications as he usually does. He denies nausea, vomiting, chest pain, worsening shortness of breath, increased edema, dysuria, hematuria, diarrhea, fevers or rash. He denies any recent sick exposures. Insulin deglutec 35 units @ hs (50 units if taking prednisone) SSI: AC <200 No NovoLog 201-250 18 units 251-300 20 units 301-350 25 units 351-400 30 units Complaint: generalized weakness Onset (ago): day(s) (2-3) Duration: constant and progressively worsening Location: generalized Migration: none Severity: mild Relieving factors: rest Exacerbating factors: exertion Associated symptoms: denies other symptoms Related Data Home Medications Medication Instructions Recorded Confirmed Trelegy Ellipta 1 inh INHALATION DAILY 09/17/19 07/23/20 albuterol sulfate [Ventolin HFA] 1 - 2 puff INHALATION QID 09/17/19 07/23/20 diltiazem HCl [Cartia XT] 240 mg PO BID 09/17/19 07/23/20 esomeprazole magnesium [Nexium 20 mg PO DAILY 09/17/19 07/23/20 24HR] fluticasone propionate 50 mcg INTRANASAL DAILY 09/17/19 07/23/20 furosemide 40 mg PO QPM 09/17/19 07/23/20 furosemide 80 mg PO QAM 09/17/19 07/23/20 insulin aspart U-100 [Novolog 1 unit SUBCUT AC 09/17/19 07/23/20 Flexpen U-100 Insulin] ipratropium-albuterol 3 ml INHALATION QID PRN 09/17/19 07/23/20 losartan 100 mg PO DAILY 09/17/19 07/23/20 metformin 1,000 mg PO BID 09/17/19 07/23/20 spironolactone 100 mg PO DAILY 09/17/19 07/23/20 zafirlukast 20 mg PO Q12H 09/17/19 07/23/20 glipizide 10 mg PO DAILY 07/23/20 07/23/20 insulin degludec [Tresiba See Rx Instructions .ROUTE .COMPLEX 07/23/20 07/23/20 FlexTouch U-100] ropinirole See Rx Instructions .ROUTE .COMPLEX 07/23/20 07/23/20 vardenafil 20 mg PO PRN PRN 07/23/20 07/23/20 Allergies Allergy/AdvReac Type Severity Reaction Status Date / Time No Known Allergies Allergy Unverified 11/05/18 16:46 Review of Systems Constitutional: Constitutional: Denies chills, Reports fatigue, Denies fever(s) and Reports weakness Eyes: Eyes: Denies change in vision and Denies photophobia ENT: Denies dysphagia, Denies nasal congestion and Denies sore throat Cardiovascular: Cardiovascular: Denies chest pain and Denies radiating jaw, neck or arm pain Respiratory: Respiratory: Reports cough, Reports dyspnea and Denies wheezing Gastrointestinal: Gastrointestinal: Denies abdominal pain, Denies diarrhea, Denies nausea and Denies vomiting Genitourinary: Genitourinary: Denies hematuria and Denies dysuria Musculoskeletal: Musculoskeletal: Denies back pain, Denies arthralgias and Denies joint swelling Integumentary/Breasts: Skin/Breast: Denies pruritus, Denies erythema and Denies rash Neurologic: Denies vertigo, Denies dizziness and Denies syncope Hematologic/Lymphatic: Hematologic/Lymphatic: Denies easy bleeding and Denies easy bruising Allergic/Immunologic: Allergic/Immunologic: Denies lip swelling and Denies throat swelling [facility] Past Medical History Medical History Asthma CHF (congestive heart failure) COPD (chronic obstructive pulmonary disease) Diabetes mellitus HTN (hypertension) On home oxygen therapy 3 L/m Surgical History Surgical History History of back surgery Family History Family History (Reviewed 09/17/19 @ 17:35 by Juan Pack
--- NOTE | 2020-07-23 02:14 | ECG_ITS ---
Measurements Intervals [place] Rate: 108 P: SD: 0 QRS: -45 QRSD: 175 T: 82 QT: 379 QTc: 509 Interpretive Statements ELECTRONIC VENTRICULAR PACEMAKER UNDERLYING SINUS OR ECTOPIC ATRIAL TACHYCARDIA NO FURTHER INTERPRETATION IS POSSIBLE ABNORMAL ECG Electronically Signed On 07-24-2020 7:32:00 CDT by Nicho Jurado D.O.
[2020-07-23 02:40] LABS: Glucose Point of Care > 450 (65-105)
[2020-07-23 03:11] LABS: Basophils Absolute Auto 0.06 K/mm3 (0.00-0.10); Basophils Percent Auto 0.8 % (0.0-1.0); Eosinophils Absolute Auto 0.12 K/mm3 (0.02-0.50); Eosinophils Percent Auto 1.6 % (1.0-6.0); Hematocrit 40.6 % (40.0-54.0); Hemoglobin 12.6 g/dL (14.0-18.0); Immature Granulocyte Absolute 0.09 K/mm3 (0.00-0.00); Immature Granulocyte Percent A 1.2 % (0.0-0.0); Lymphocytes Absolute Auto 0.91 K/mm3 (1.10-4.50); Lymphocytes Percent Auto 11.8 % (18.0-42.0); Mean Corpuscular Hemoglobin 28.3 pg (27.0-31.0); Mean Corpuscular Volume 91.2 fL (78.0-102.0); Mean Platelet Volume 9.5 fl (8.7-11.0); Monocytes Absolute Auto 0.75 K/mm3 (0.10-0.90); Monocytes Percent Auto 9.7 % (2.0-11.0); Neutrophils Absolute Auto 5.8 K/mm3 (1.7-7.2); Neutrophils Percent Auto 74.9 % (50.0-70.0); Platelet Count Result 317 K/mm3 (150-420); Red Blood Count 4.45 M/mm3 (4.70-6.10); Red Cell Distribution Width 14.1 % (11.6-14.4); White Blood Count 7.7 K/mm3 (4.8-10.8)
[2020-07-23 03:24] LABS: Add Urine Microscopic? YES; Appearance Urine Clear (Clear); Bilirubin Urine Negative (Negative); Blood Urine Negative (Negative); Color Urine Yellow (Yellow); Glucose Urine UA 3+ (Negative); Ketones Urine Negative (Negative); Leukocyte Esterase Ur Negative LEU/UL (Negative); Nitrate Urine Negative (Negative); Protein Urine Negative (Negative); Urobilinogen Urine 0.2 mg/dL (0.2-1.0)
[2020-07-23 03:25] LABS: Lactic Acid Reflex 1.6 mmol/L (0.4-2.0)
[2020-07-23 03:26] LABS: Alanine Aminotransferase 35 U/L (16-63); Albumin Level 3.3 g/dL (3.4-5.0); Alkaline Phosphatase 199 U/L (46-116); Anion Gap 3 mmol/L (8-16); Aspartate Amino Transferase 14 U/L (15-37); Bilirubin,Total 0.3 mg/dL (0.00-1.00); Blood Urea Nitrogen 26 mg/dL (7-18); CRP 1.2 mg/dL (0.0-0.9); Calcium 10.6 mg/dL (8.5-10.1); Carbon Dioxide 33 mmol/L (21-32); Chloride 97 mmol/L (98-108); Estimated CRCL calculation 73 ml/min; Estimated Glomerular Filt Rate 48; Hemoglobin A1C 7.1 % (<5.7); NT Pro B Type Natriuretic Pept 457 pg/mL (0-125); Osmolality Calculated 300 mOsm/kg (285-295); Potassium 4.8 mmol/L (3.5-5.1); Sodium 133 mmol/L (136-145); Total Protein 7.6 g/dL (6.4-8.2); Troponin I 27.6 ng/L (0.00-60.4)
[2020-07-23 03:30] LABS: Partial Thromboplastin Time 24.7 SEC (23.90-30.70); Prothrombin Time 10.5 Seconds (9.50-12.10)
[2020-07-23 03:31] LABS: Glucose 464 mg/dL (70-99)
[2020-07-23 03:31] LABS: RBC Urine None seen /hpf (0-2); Squamous Epithelial Cell Urine None seen /hpf (Few); WBC Urine None seen /hpf (0-3)
[2020-07-23 03:49] LABS: Influenza A QL RT-PCR Negative (Negative); Influenza B QL RT-PCR Negative (Negative); SARS-CoV-2 RNA PCR Negative (Negative)
[2020-07-23 04:04] LABS: Glucose Point of Care 363 (65-105)
[2020-07-23] MEDS: FUROSEMIDE INJ 40 MG/4 ML VIAL IV PUSH ×2 (04:29→17:23)
--- NOTE | 2020-07-23 05:18 | PC.NURSE ---
Patient admitted to room 227 from the ER, is alert and oriented x 3, no c/o pain, o2 per orders, oriented to room and call reyes, voices understanding.
--- NOTE | 2020-07-23 05:43 | PC.NURSE ---
Talked to Dr. Epstein to clarify sliding scale orders; Orders clarified to check blood sugar before breakfast.
[2020-07-23] MEDS: metFORMIN HCL 500 MG TABLET 1000 MG PO (08:07)
[2020-07-23] MEDS: glipiZIDE XL 5 MG TABCR 10 MG PO (08:07)
[2020-07-23 08:19] LABS: Troponin I 33.4 ng/L (0.00-60.4)
[2020-07-23 08:20] LABS: Glucose Point of Care 369 (65-105)
[2020-07-23] MEDS: LOSARTAN POTASSIUM 50 MG TABLET 100 MG PO (09:40)
[2020-07-23] MEDS: SPIRONOLACTONE 25 MG TABLET 100 MG PO (09:40)
[2020-07-23] MEDS: ALBUTEROL SULFATE (*SP) INHALER 1 PUFF INHALATION ×3 (09:41→21:22)
[2020-07-23] MEDS: PANTOPRAZOLE 40 MG TABLET PO (09:41)
[2020-07-23] MEDS: ZAFIRLUKAST 20 MG TABLET PO ×2 (09:41→21:23)
[2020-07-23] MEDS: ENOXAPARIN 40 MG/0.4 ML SYRINGE SUB-Q (09:42)
[2020-07-23] MEDS: FLUTICASONE PROPIONATE 0.05% NA SPR 16 GM BTL (*BKC) 1 SPRAY NASAL (09:42)
[2020-07-23] MEDS: FLUTICASONE/UMECLIDIN/VILANTER 100-62.5-25 MCG ELLIPTA 1 PUFF INHALATION (09:43)
[2020-07-23] MEDS: methylPREDNISolone SOD SUCC 125 MG VIAL IV PUSH ×2 (09:45→17:23)
--- NOTE | 2020-07-23 10:49 | PM.IMHP ---
H&P: HPI History of Present Illness Date/Time: 07/23/20 10:49 this is a 54-year-old male that presented to the ED with high blood sugars and fatigue. Patient has a past medical history of asthma, congestive heart failure, COPD, diabetes, hypertension, use of home oxygen at 3 L. According to patient on he felt fatigued , more short of breath with a decrease appetite. Patient notes that he only drinks soda the whole entire day. Patient is a diabetic and he noted that he did not drink diet soda. Patient noted that he did not take any of his insulin for the day nor did he check his blood sugar. Patient wasn't detailed about what led to his condition. He also noted that his lower extremity started swelling as well. He does have a history of lower extremity edema but noted that they were more swollen this time. Patient remains fatigued with a decreased appetite on admission his white count was 7.7, hemoglobin 12.6, hematocrit 40.6, platelets 317, sodium 133, potassium 4.8, anion gap 20, BUN 26, creatinine 1.50, glucose 464, lactic acid 1.6, troponin negative x2, CRP 1.2, BUN 47, glucose in urine. Patient being admitted for congestive heart failure, hyperglycemia and weakness. The patient denies CP, palpitation, extremity numbness, lightheadedness, dizziness, constipation, diarrhea, chills, or fever. Chief Complaint: Elevated blood sugar and fatigue Review of Systems Review of Systems: Narrative: A 14 organ system Review of Systems was performed and pertinent positives included in the HPI, otherwise remaining ROS is negative. [facility] Past Medical History Medical History Asthma CHF (congestive heart failure) COPD (chronic obstructive pulmonary disease) Diabetes mellitus HTN (hypertension) On home oxygen therapy 3 L/m Surgical History Surgical History History of back surgery Family History Family History Mother Hypertension Family history of alcoholism Father Family history of aortic aneurysm Social History Social History Smoking status: Never smoker Tobacco type: cigarettes Second hand tobacco smoke exposure: No Smoking end date: 04/01/15 Alcohol intake: unknown Substance use: unknown Substance use type: does not use Last use: 2010 Gender identity (if verbalized by the patient): Male Spiritual care concerns: No Meds Home Medications and Allergies Home Medications Medication Instructions Recorded Confirmed Type Trelegy Ellipta 1 inh INHALATION DAILY 09/17/19 07/23/20 History albuterol sulfate [Ventolin HFA] 1 - 2 puff INHALATION QID 09/17/19 07/23/20 History diltiazem HCl [Cartia XT] 240 mg PO BID 09/17/19 07/23/20 History esomeprazole magnesium [Nexium 20 mg PO DAILY 09/17/19 07/23/20 History 24HR] fluticasone propionate 50 mcg INTRANASAL DAILY 09/17/19 07/23/20 History furosemide 40 mg PO QPM 09/17/19 07/23/20 History furosemide 80 mg PO QAM 09/17/19 07/23/20 History insulin aspart U-100 [Novolog 1 unit SUBCUT AC 09/17/19 07/23/20 History Flexpen U-100 Insulin] ipratropium-albuterol 3 ml INHALATION QID PRN 09/17/19 07/23/20 History losartan 100 mg PO DAILY 09/17/19 07/23/20 History metformin 1,000 mg PO BID 09/17/19 07/23/20 History spironolactone 100 mg PO DAILY 09/17/19 07/23/20 History zafirlukast 20 mg PO Q12H 09/17/19 07/23/20 History glipizide 10 mg PO DAILY 07/23/20 07/23/20 History insulin degludec [Tresiba See Rx Instructions .ROUTE .COMPLEX 07/23/20 07/23/20 History FlexTouch U-100] ropinirole See Rx Instructions .ROUTE .COMPLEX 07/23/20 07/23/20 History vardenafil 20 mg PO PRN PRN 07/23/20 07/23/20 History Allergies Allergy/AdvReac Type Severity Reaction Status Date / Time No Known Allergies Allergy Unverified 11/05/18 16:46 Vital Signs
[2020-07-23] MEDS: ONDANSETRON INJ 4 MG/2 ML VIAL IV PUSH ×2 (10:54→19:41)
[2020-07-23 11:53] LABS: Glucose Point of Care 236 (65-105)
[2020-07-23 11:53] LABS: Glucose Point of Care 318 (65-105)
[2020-07-23 12:22] LABS: Basophils Absolute Auto 0.04 K/mm3 (0.00-0.10); Basophils Percent Auto 0.3 % (0.0-1.0); Eosinophils Absolute Auto 0.09 K/mm3 (0.02-0.50); Eosinophils Percent Auto 0.7 % (1.0-6.0); Hematocrit 42.6 % (40.0-54.0); Hemoglobin 13.3 g/dL (14.0-18.0); Immature Granulocyte Absolute 0.08 K/mm3 (0.00-0.00); Immature Granulocyte Percent A 0.6 % (0.0-0.0); Lymphocytes Absolute Auto 1.15 K/mm3 (1.10-4.50); Lymphocytes Percent Auto 9.2 % (18.0-42.0); Mean Corpuscular HGB Conc 31.2 g/dL (32.0-36.0); Mean Corpuscular Hemoglobin 28.3 pg (27.0-31.0); Mean Corpuscular Volume 90.6 fL (78.0-102.0); Monocytes Absolute Auto 0.43 K/mm3 (0.10-0.90); Monocytes Percent Auto 3.4 % (2.0-11.0); Neutrophils Absolute Auto 10.7 K/mm3 (1.7-7.2); Neutrophils Percent Auto 85.8 % (50.0-70.0); Platelet Count Result 331 K/mm3 (150-420); Red Cell Distribution Width 13.8 % (11.6-14.4); White Blood Count 12.5 K/mm3 (4.8-10.8)
[2020-07-23 12:45] LABS: Alanine Aminotransferase 35 U/L (16-63); Albumin Level 3.5 g/dL (3.4-5.0); Alkaline Phosphatase 188 U/L (46-116); Anion Gap 4 mmol/L (8-16); Aspartate Amino Transferase 13 U/L (15-37); Bilirubin,Total 0.3 mg/dL (0.00-1.00); Blood Urea Nitrogen 24 mg/dL (7-18); Calcium 11.3 mg/dL (8.5-10.1); Carbon Dioxide 34 mmol/L (21-32); Chloride 98 mmol/L (98-108); Estimated CRCL calculation 85 ml/min; Estimated Glomerular Filt Rate 58; Glucose 272 mg/dL (70-99); NT Pro B Type Natriuretic Pept 792 pg/mL (0-125); Osmolality Calculated 296 mOsm/kg (285-295); Potassium 5.2 mmol/L (3.5-5.1); Sodium 136 mmol/L (136-145); Total Protein 8.2 g/dL (6.4-8.2)
[2020-07-23 17:29] LABS: Glucose Point of Care 319 (65-105)
--- NOTE | 2020-07-23 18:15 | PC.NURSE ---
Patient called and stated he was gonna be sick. When nurse walked in room patient had had 600ml emesis of partcially digested food and liquid. Patient reports the nausea came on fast and left just fast as well. Denies any nausea at this time. Patient states he does not need any zofran. Patient cont. sitting up at side of bed. Patient has call bed and emesis basin in reach.
[2020-07-23] MEDS: rOPINIRole HCL 1 MG TABLET 4 MG PO (21:23)
[2020-07-23 21:55] LABS: Glucose Point of Care 314 (65-105)
[2020-07-24] VITALS (15 sets, daily range): BP systolic 107–131; BP diastolic 68–94; PULSE 71–99; RESP 16–22; TEMP 36.1–37.4; O2SAT 86–98
[2020-07-24] MEDS: methylPREDNISolone SOD SUCC 125 MG VIAL IV PUSH ×2 (00:45→09:30)
--- NOTE | 2020-07-24 02:26 | PC.NURSE ---
pt sleeping, respirations even and regular, no evidence of distress noted
--- NOTE | 2020-07-24 03:50 | PC.NURSE ---
Staff to check on patient and get vital signs; It was noted that pt's oxygen was off and SAO2 was 74%. Oxygen was put back on but only came up to 77% after 5 minutes of the oxygen being on. Attempted to put a non rebreather on pt but pt became upset and said I cant wear that-I cant have that mask on my face, I cant stand it Explained to patient why he needed the non rebreather but he refused it. Pt said he would wear his c-pap from home which was on the bedside table. Pt assisted with putting the c-pap on and set at 5 liters per oxygen bleed in. SAO2 remained at 77-78%.
--- NOTE | 2020-07-24 04:22 | PC.NURSE ---
Dr. Campos here to see patient; Order to continue to watch patient.
--- NOTE | 2020-07-24 04:45 | PC.NURSE ---
patients oxygen saturation 79-82% with 10L bled in to home cpap/bipap machine
[2020-07-24 05:04] LABS: Base Excess ABG 2.7 mmol/L (0-2); HCO3 ABG 32.2 mmol/L (23-29); Oxygen Content ABG 16.1 %vol (16.0-22.0); Oxygen Saturation ABG 85.4 % (95-97); Oxyhemoglobin 84.1 % (94-100); PO2 ABG 54.6 mmHg (80-90); Total Hemoglobin 13.6 g/dL; pH ABG 7.25 (7.35-7.45)
[2020-07-24 05:05] LABS: Device CPAP; Modified Allen's Test Pass; Site Drawn LEFT RADIAL
[2020-07-24 05:08] LABS: PCO2 ABG 75.1 mmHg (35-45)
[2020-07-24 05:11] LABS: Hematocrit 41.1 % (40.0-54.0); Hemoglobin 12.6 g/dL (14.0-18.0); White Blood Count 15.3 K/mm3 (4.8-10.8)
[2020-07-24 05:12] LABS: Mean Corpuscular HGB Conc 30.7 g/dL (32.0-36.0); Mean Corpuscular Volume 91.3 fL (78.0-102.0); Mean Platelet Volume 9.3 fl (8.7-11.0); Platelet Count Result 338 K/mm3 (150-420); Red Cell Distribution Width 13.5 % (11.6-14.4)
--- NOTE | 2020-07-24 05:15 | PC.NURSE ---
Lab called with critical Pco2 of 35.1; Dr. Campos notified and no new orders at this time.
[2020-07-24 05:28] LABS: Lactic Acid Reflex 1.6 mmol/L (0.4-2.0)
[2020-07-24 05:34] LABS: Alanine Aminotransferase 34 U/L (16-63); Albumin Level 3.1 g/dL (3.4-5.0); Alkaline Phosphatase 160 U/L (46-116); Anion Gap 2 mmol/L (8-16); Aspartate Amino Transferase 10 U/L (15-37); Bilirubin,Total 0.3 mg/dL (0.00-1.00); Blood Urea Nitrogen 30 mg/dL (7-18); CRP 1.2 mg/dL (0.0-0.9); Calcium 10.6 mg/dL (8.5-10.1); Carbon Dioxide 36 mmol/L (21-32); Chloride 97 mmol/L (98-108); Estimated CRCL calculation 75 ml/min; Estimated Glomerular Filt Rate 48; Glucose 329 mg/dL (70-99); Magnesium 2.2 mg/dL (1.8-2.4); Osmolality Calculated 299 mOsm/kg (285-295); Potassium 5.9 mmol/L (3.5-5.1); Sodium 135 mmol/L (136-145); Total Protein 7.4 g/dL (6.4-8.2)
--- NOTE | 2020-07-24 05:41 | PC.NURSE ---
Dr. Campos notified of pt's ABG results; New orders received and noted.
[2020-07-24] MEDS: ALBUTEROL SULFATE (*SP) INHALER 1 PUFF INHALATION ×2 (05:46→09:40)
--- NOTE | 2020-07-24 06:25 | PC.NURSE ---
Respiratory at bedside
--- NOTE | 2020-07-24 06:35 | PC.NURSE ---
Dr Campos called and report given pt O2 sat, respiratory at bedside, pt refusing to wear mask or bipap now that he is awake, orders given to try nasal canula again
--- NOTE | 2020-07-24 06:38 | P.PNCROSS_ITS ---
Event Note Event Note Event Note: Assessment of patient after was called for a decrease in O2 saturations, apparently the patient was found without his oxygen nasal cannula and unknown amount of time without his nasal cannula was on 3L, was called and his O2 saturations were around 66 to 68% and started the patient on non- rebreather which he did not tolerate and became combative and did not want the non-rebreather mask. Subsequently started his CPAP with 5L which slowly helped improve his O2 saturations. ABGs were performed which showed that he had partially compensated respiratory acidosis and called Respiratory to start the patient on BiPAP, but currently his O2 sats have jumped up to 98 99% otherwise doing well at this time and refusing a BiPAP. This point will restart his O2 at about 3 to 5 L and assesses ABGs.
[2020-07-24 07:03] LABS: NT Pro B Type Natriuretic Pept 1872 pg/mL (0-125)
[2020-07-24 07:57] LABS: Base Excess ABG 1.5 mmol/L (0-2); HCO3 ABG 31.2 mmol/L (23-29); Oxygen Content ABG 17.3 %vol (16.0-22.0); Oxygen Saturation ABG 91.9 % (95-97); Oxyhemoglobin 90.6 % (94-100); PO2 ABG 69.9 mmHg (80-90); Total Hemoglobin 13.6 g/dL; pH ABG 7.23 (7.35-7.45)
[2020-07-24 07:58] LABS: Modified Allen's Test Unable to perform; Site Drawn RIGHT RADIAL
[2020-07-24 07:59] LABS: Device NASAL CANNULA
[2020-07-24 08:00] LABS: PCO2 ABG 75.8 mmHg (35-45)
[2020-07-24 08:24] LABS: Glucose Point of Care 307 (65-105)
[2020-07-24] MEDS: glipiZIDE XL 5 MG TABCR 10 MG PO (09:08)
[2020-07-24] MEDS: ZAFIRLUKAST 20 MG TABLET PO ×2 (09:09→21:44)
[2020-07-24] MEDS: SPIRONOLACTONE 25 MG TABLET 100 MG PO (09:09)
[2020-07-24] MEDS: LOSARTAN POTASSIUM 50 MG TABLET 100 MG PO (09:09)
[2020-07-24] MEDS: PANTOPRAZOLE 40 MG TABLET PO (09:12)
[2020-07-24] MEDS: ENOXAPARIN 40 MG/0.4 ML SYRINGE SUB-Q (09:19)
[2020-07-24] MEDS: FLUTICASONE/UMECLIDIN/VILANTER 100-62.5-25 MCG ELLIPTA 1 PUFF INHALATION (09:20)
[2020-07-24] MEDS: FUROSEMIDE INJ 40 MG/4 ML VIAL 80 MG IV PUSH ×2 (09:20→17:18)
[2020-07-24] MEDS: FLUTICASONE PROPIONATE 0.05% NA SPR 16 GM BTL (*BKC) 1 SPRAY NASAL (09:21)
--- NOTE | 2020-07-24 11:05 | P.PN_ITS ---
Progress Note: A&P Assessment and Plan (1) Pneumonia: Qualifiers: Pneumonia type: due to unspecified organism Laterality: bilateral Lung location: lower lobe of lung Qualified Code(s): J18.9 - Pneumonia, unspecified organism Code(s): J18.9 - Pneumonia, unspecified organism Status: Acute Assessment and Plan: * Chest [id number] pneumonia versus pulmonary edema * Levaquin day 2 * Continue inhalers * Blood cultures pending preliminary reading no growth * Patient currently on nonrebreather * Continue nebulizers (2) Hyperglycemia: Code(s): R73.9 - Hyperglycemia, unspecified Status: Acute Assessment and Plan: * Blood sugar on admission 464 remains high patient currently on steroids possible cause of the elevated blood sugars. Steroids decreased today * Will adjust insulin * Refer to diabetes * Started 5 units 3 times daily with meals with sliding scale and long-acting insulin (3) Weakness: Code(s): R53.1 - Weakness Status: Acute Assessment and Plan: * Possibly secondary to infection versus hyperglycemia versus COPD exacerbation (4) On home oxygen therapy: Code(s): Z99.81 - Dependence on supplemental oxygen Status: Acute Assessment and Plan: Continue oxygen use (5) Type 2 DM with CKD and hypertension: Code(s): E11.22 - Type 2 diabetes mellitus with diabetic chronic kidney disease; I12.9 - Hypertensive chronic kidney disease with stage 1 through stage 4 chronic kidney disease, or unspecified chronic kidney disease Status: Acute Assessment and Plan: * A1c 7.1 * Continue Accu-Chek with sliding scale hypoglycemic protocol * Will adjust medication as needed * Continue diabetic diet * Will closely monitor with the use of steroids * Blood sugar on admission 464 remains high patient currently on steroids possible cause of the elevated blood sugars. Steroids decreased today * Started 5 units 3 times daily with meals with sliding scale and long-acting insulin (6) HTN (hypertension): Qualifiers: Hypertension type: essential hypertension Qualified Code(s): I10 - Essential (primary) hypertension Code(s): I10 - Essential (primary) hypertension Status: Acute Assessment and Plan: * Patient at baseline * Continue home medication * Vital signs as * Will adjust medication as needed (7) CHF (congestive heart failure): Qualifiers: Heart failure chronicity: acute on chronic Heart failure type: unspecified Qualified Code(s): I50.9 - Heart failure, unspecified Code(s): I50.9 - Heart failure, unspecified Status: Acute Assessment and Plan: * BNP 457-->1872 * Weigh patient daily * Low-sodium diet * Lasix 40 mg twice daily increased to 80 mg daily and chlorthalidone 12.5 mg daily added * Will monitor renal function * Strict I's and O's, intake 1830, output 1200 +630 on 07/24 * weight 147-->150 * Repeat chest x-ray worsening pulmonary edema versus pneumonia more than likely pulmonary edema * Metoprolol 12.5 twice daily added * Spironolactone DC'd due to elevated potassium * Repeat BMP at 6 * Patient placed on fluid restriction (8) COPD (chronic obstructive pulmonary disease): Qualifiers: COPD type: unspecified COPD Qualified Code(s): J44.9 - Chronic obstructive pulmonary disease, unspecified Code(s): J44.9 - Chronic obstructive pulmonary disease, unspecified Status: Acute Assessment and Plan: * Continue nebulizers and inhalers * Continu
--- NOTE | 2020-07-24 11:05 | WPDPN ---
Progress Note: A&P Assessment and Plan (1) Pneumonia: Qualifiers: Pneumonia type: due to unspecified organism Laterality: bilateral Lung location: lower lobe of lung Qualified Code(s): J18.9 - Pneumonia, unspecified organism Code(s): J18.9 - Pneumonia, unspecified organism Status: Acute Assessment and Plan: Chest [id number] pneumonia versus pulmonary edema Levaquin day 2 Continue inhalers Blood cultures pending preliminary reading no growth Patient currently on nonrebreather Continue nebulizers (2) Hyperglycemia: Code(s): R73.9 - Hyperglycemia, unspecified Status: Acute Assessment and Plan: Blood sugar on admission 464 remains high patient currently on steroids possible cause of the elevated blood sugars. Steroids decreased today Will adjust insulin Refer to diabetes Started 5 units 3 times daily with meals with sliding scale and long-acting insulin (3) Weakness: Code(s): R53.1 - Weakness Status: Acute Assessment and Plan: Possibly secondary to infection versus hyperglycemia versus COPD exacerbation (4) On home oxygen therapy: Code(s): Z99.81 - Dependence on supplemental oxygen Status: Acute Assessment and Plan: Continue oxygen use (5) Type 2 DM with CKD and hypertension: Code(s): E11.22 - Type 2 diabetes mellitus with diabetic chronic kidney disease; I12.9 - Hypertensive chronic kidney disease with stage 1 through stage 4 chronic kidney disease, or unspecified chronic kidney disease Status: Acute Assessment and Plan: A1c 7.1 Continue Accu-Chek with sliding scale hypoglycemic protocol Will adjust medication as needed Continue diabetic diet Will closely monitor with the use of steroids Blood sugar on admission 464 remains high patient currently on steroids possible cause of the elevated blood sugars. Steroids decreased today Started 5 units 3 times daily with meals with sliding scale and long-acting insulin (6) HTN (hypertension): Qualifiers: Hypertension type: essential hypertension Qualified Code(s): I10 - Essential (primary) hypertension Code(s): I10 - Essential (primary) hypertension Status: Acute Assessment and Plan: Patient at baseline Continue home medication Vital signs as Will adjust medication as needed (7) CHF (congestive heart failure): Qualifiers: Heart failure chronicity: acute on chronic Heart failure type: unspecified Qualified Code(s): I50.9 - Heart failure, unspecified Code(s): I50.9 - Heart failure, unspecified Status: Acute Assessment and Plan: BNP 457-->1872 Weigh patient daily Low-sodium diet Lasix 40 mg twice daily increased to 80 mg daily and chlorthalidone 12.5 mg daily added Will monitor renal function Strict I's and O's, intake 1830, output 1200 +630 on 07/24 weight 147-->150 Repeat chest x-ray worsening pulmonary edema versus pneumonia more than likely pulmonary edema Metoprolol 12.5 twice daily added Spironolactone DC'd due to elevated potassium Repeat BMP at 6 Patient placed on fluid restriction (8) COPD (chronic obstructive pulmonary disease): Qualifiers: COPD type: unspecified COPD Qualified Code(s): J44.9 - Chronic obstructive pulmonary disease, unspecified Code(s): J44.9 - Chronic obstructive pulmonary disease, unspecified Status: Acute Assessment and Plan: Continue nebulizers and inhalers Continue supplementary oxygen Continue Solu-Medrol (9) Hyperkalemia: Code(s): E87.5 - Hyperkalemia Status: Acute Assessment and Plan: Possibly secondary to acute kidney injury Patient receiving diuretics will increase diuretic CMP at 6:00 Spironolactone DC'd (10) Acute kidney injury: Code(s): N17.9 - Acute kidney failure, unspecified Status: Acute Assessment and Plan: Secondary to with the use of
--- NOTE | 2020-07-24 11:20 | PC.NURSE ---
Cyndy RT here and high flow Oxygen started at 40L and 40%FiO2 before respiratory treatment.
[2020-07-24] MEDS: IPRATROPIUM 0.5 MG/ALBUTEROL SULFATE 2.5 MG AMPUL.NEB 3 ML INHALATION ×3 (11:30→23:30)
[2020-07-24 11:47] LABS: Glucose Point of Care 400 (65-105)
[2020-07-24] MEDS: METOPROLOL TARTRATE 12.5 MG TABLET PO (11:54)
[2020-07-24] MEDS: CHLORTHALIDONE 12.5 MG TAB PO (11:55)
--- NOTE | 2020-07-24 14:00 | PC.NURSE ---
Solumedrol 80mg Q 8 hours at 1400 held as patient received Soulmedrol 125mg IVP at 0940,
[2020-07-24] MEDS: methylPREDNISolone SOD SUCC 125 MG VIAL 80 MG IV PUSH ×2 (15:32→21:46)
[2020-07-24 17:27] LABS: Glucose Point of Care 434 (65-105)
[2020-07-24 18:14] LABS: Base Excess ABG 0.2 mmol/L (0-2); HCO3 ABG 26.7 mmol/L (23-29); Oxygen Content ABG 18.9 %vol (16.0-22.0); Oxygen Saturation ABG 97.9 % (95-97); PCO2 ABG 50.4 mmHg (35-45); PO2 ABG 107.8 mmHg (80-90); Total Hemoglobin 13.9 g/dL; pH ABG 7.34 (7.35-7.45)
[2020-07-24 18:15] LABS: Device HIGH FLOW NASAL CANN; Modified Allen's Test Pass; Site Drawn RIGHT RADIAL
--- NOTE | 2020-07-24 18:15 | PC.NURSE ---
8420 notified that patient's blood sugar result was 434. New order received to give 20 units of insulin and recheck sugar in 2 hours.
[2020-07-24 18:49] LABS: Alanine Aminotransferase 31 U/L (16-63); Albumin Level 3.4 g/dL (3.4-5.0); Alkaline Phosphatase 156 U/L (46-116); Anion Gap 4 mmol/L (8-16); Aspartate Amino Transferase < 10 U/L (15-37); Bilirubin,Total 0.4 mg/dL (0.00-1.00); Blood Urea Nitrogen 44 mg/dL (7-18); Calcium 10.9 mg/dL (8.5-10.1); Carbon Dioxide 34 mmol/L (21-32); Chloride 94 mmol/L (98-108); Estimated CRCL calculation 66 ml/min; Estimated Glomerular Filt Rate 42; Glucose 378 mg/dL (70-99); Magnesium 2.4 mg/dL (1.8-2.4); NT Pro B Type Natriuretic Pept 1198 pg/mL (0-125); Osmolality Calculated 301 mOsm/kg (285-295); Potassium 5.3 mmol/L (3.5-5.1); Sodium 132 mmol/L (136-145); Total Protein 7.8 g/dL (6.4-8.2)
[2020-07-24 19:45] LABS: Glucose Point of Care 423 (65-105)
[2020-07-24] MEDS: rOPINIRole HCL 1 MG TABLET 4 MG PO (21:44)
[2020-07-24] MEDS: METOPROLOL TARTRATE 6.25 MG TABLET PO (21:45)
--- NOTE | 2020-07-24 21:59 | PC.NURSE ---
1563 notified that patient's blood sugar @ was 369. New order received to give patient Lispro 12 now.
[2020-07-24 22:03] LABS: Glucose Point of Care 369 (65-105)
--- NOTE | 2020-07-25 01:27 | PC.NURSE ---
pt sleeping in recliner, hi flow nc on per orders with alarms active, tele monitor on with alarms active, no evidence of distress noted at this time.
[2020-07-25 04:00] VITALS: BP 148/84; PULSE 71; RESP 20; TEMP 36.8; O2SAT 98
[2020-07-25 05:31] LABS: Hematocrit 40.6 % (40.0-54.0); Hemoglobin 12.6 g/dL (14.0-18.0); Mean Corpuscular Hemoglobin 27.9 pg (27.0-31.0); Mean Platelet Volume 9.4 fl (8.7-11.0); Platelet Count Result 353 K/mm3 (150-420); Red Blood Count 4.51 M/mm3 (4.70-6.10); Red Cell Distribution Width 13.7 % (11.6-14.4); White Blood Count 19.4 K/mm3 (4.8-10.8)
[2020-07-25] MEDS: IPRATROPIUM 0.5 MG/ALBUTEROL SULFATE 2.5 MG AMPUL.NEB 3 ML INHALATION (05:35)
[2020-07-25 05:36] VITALS: PULSE 73; RESP 18; O2SAT 97
[2020-07-25] MEDS: methylPREDNISolone SOD SUCC 125 MG VIAL 80 MG IV PUSH (05:42)
[2020-07-25 05:46] VITALS: PULSE 76; RESP 20; O2SAT 98
[2020-07-25 05:52] LABS: Alanine Aminotransferase 30 U/L (16-63); Albumin Level 3.2 g/dL (3.4-5.0); Alkaline Phosphatase 142 U/L (46-116); Anion Gap 3 mmol/L (8-16); Aspartate Amino Transferase < 10 U/L (15-37); Bilirubin,Total 0.3 mg/dL (0.00-1.00); Blood Urea Nitrogen 52 mg/dL (7-18); CRP < 0.5 mg/dL (0.0-0.9); Calcium 10.8 mg/dL (8.5-10.1); Carbon Dioxide 36 mmol/L (21-32); Chloride 97 mmol/L (98-108); Estimated CRCL calculation 71 ml/min; Estimated Glomerular Filt Rate 46; Glucose 242 mg/dL (70-99); Magnesium 2.5 mg/dL (1.8-2.4); NT Pro B Type Natriuretic Pept 551 pg/mL (0-125); Osmolality Calculated 304 mOsm/kg (285-295); Potassium 4.7 mmol/L (3.5-5.1); Sodium 136 mmol/L (136-145); Total Protein 7.4 g/dL (6.4-8.2)
[2020-07-25 07:36] LABS: Glucose Point of Care 275 (65-105)
[2020-07-25 07:55] VITALS: BP 134/96; PULSE 75; RESP 12; TEMP 36.7; O2SAT 97
--- NOTE | 2020-07-25 08:25 | PM.DS ---
DS: Admitting Diagnosis Admitting Diagnosis Admitting Diagnosis: Congestive heart failure, pneumonia, hyperglycemia and weakness <LATOYA Campbell-C - Last Filed: 07/25/20 12:41> DS: Discharge Diagnosis Discharge Diagnosis (1) Pneumonia: Qualifiers: Laterality: bilateral Lung location: lower lobe of lung Pneumonia type: due to unspecified organism Qualified Code(s): J18.9 - Pneumonia, unspecified organism <LATOYA Campbell-Antonio - Last Filed: 07/25/20 12:41> Code(s): J18.9 - Pneumonia, unspecified organism <LATOYA Campbell-C - Last Filed: 07/25/20 12:41> Status: Acute <LATOYA Campbell-Antonio - Last Filed: 07/25/20 12:41> Assessment and Plan: Chest [id number]-[id number] pneumonia versus pulmonary edema Levaquin day 2 Continue home inhalers Blood cultures pending preliminary reading no growth s <LATOYA Campbell-Antonio - Last Filed: 07/25/20 12:41> (2) Hyperglycemia: Code(s): R73.9 - Hyperglycemia, unspecified <LATOYA Campbell-C - Last Filed: 07/25/20 12:41> Status: Acute <LATOYA Campbell-Antonio - Last Filed: 07/25/20 12:41> Assessment and Plan: Blood sugar on admission 464 remains high patient currently on steroids, better below 300 today Continue home medication <LATOYA Campbell-Antonio - Last Filed: 07/25/20 12:41> (3) Weakness: Code(s): R53.1 - Weakness <LATOYA Campbell-C - Last Filed: 07/25/20 12:41> Status: Acute <LATOYA Campbell-Antonio - Last Filed: 07/25/20 12:41> Assessment and Plan: Possibly secondary to infection versus hyperglycemia versus COPD exacerbation <LATOYA Campbell-Antonio - Last Filed: 07/25/20 12:41> (4) On home oxygen therapy: Code(s): Z99.81 - Dependence on supplemental oxygen <FABRICIO Campbell - Last Filed: 07/25/20 12:41> Status: Acute <Bernie OxanaFABRICIO Rae - Last Filed: 07/25/20 12:41> Assessment and Plan: Continue oxygen use <FABRICIO Campbell - Last Filed: 07/25/20 12:41> (5) Type 2 DM with CKD and hypertension: Code(s): E11.22 - Type 2 diabetes mellitus with diabetic chronic kidney disease; I12.9 - Hypertensive chronic kidney disease with stage 1 through stage 4 chronic kidney disease, or unspecified chronic kidney disease <FABRICIO Campbell - Last Filed: 07/25/20 12:41> Status: Acute <FABRICIO Campbell - Last Filed: 07/25/20 12:41> Assessment and Plan: A1c 7.1 Blood sugar below 300 better controlled follow-up with primary care physician <FABRICIO Campbell - Last Filed: 07/25/20 12:41> (6) HTN (hypertension): Qualifiers: Hypertension type: essential hypertension Qualified Code(s): I10 - Essential (primary) hypertension <FABRICIO Campbell - Last Filed: 07/25/20 12:41> Code(s): I10 - Essential (primary) hypertension <FABRICIO Campbell - Last Filed: 07/25/20 12:41> Status: Acute <FABRICIO Campbell - Last Filed: 07/25/20 12:41> Assessment and Plan: Patient at baseline Continue home medication <FABRICIO Campbell - Last Filed: 07/25/20 12:41> (7) CHF (congestive heart failure): Qualifiers: Heart failure chronicity: acute on chronic Heart failure type: unspecified Qualified Code(s): I50.9 - Heart failure, unspecified <FABRICIO Campbell - Last Filed: 07/25/20 12:41> Code(s): I50.9 - Heart failure, unspecified <FABRICIO Campbell - Last Filed: 07/25/20 12:41> Status: Acute <JESSA CampbellC - Last Filed: 07/25/20 12:41> Assessment and Plan: BNP 457-->1872-->1198-->551 Weigh patient daily, refused today Low-sodium diet Will discharge home with home dosing Strict I's and O's, intake 1840, output 3075 weight 147-->150 refused today Repeat chest x-
[2020-07-25] MEDS: ENOXAPARIN 40 MG/0.4 ML SYRINGE SUB-Q (08:52)
[2020-07-25] MEDS: glipiZIDE XL 5 MG TABCR 10 MG PO (08:55)
[2020-07-25] MEDS: FUROSEMIDE INJ 40 MG/4 ML VIAL 80 MG IV PUSH (08:55)
[2020-07-25] MEDS: ZAFIRLUKAST 20 MG TABLET PO (08:57)
[2020-07-25] MEDS: PANTOPRAZOLE 40 MG TABLET PO (08:57)
[2020-07-25] MEDS: LOSARTAN POTASSIUM 50 MG TABLET 100 MG PO (08:57)
[2020-07-25] MEDS: FLUTICASONE/UMECLIDIN/VILANTER 100-62.5-25 MCG ELLIPTA 1 PUFF INHALATION (08:58)
[2020-07-25] MEDS: CHLORTHALIDONE 12.5 MG TAB PO (08:58)
[2020-07-25] MEDS: FLUTICASONE PROPIONATE 0.05% NA SPR 16 GM BTL (*BKC) 1 SPRAY NASAL (08:58)
[2020-07-25 09:05] VITALS: PULSE 75
[2020-07-25] MEDS: METOPROLOL TARTRATE 6.25 MG TABLET PO (09:05)
[2020-07-25] MEDS: methylPREDNISolone SOD SUCC 125 MG VIAL 40 MG IV PUSH (09:13)
--- NOTE | 2020-07-25 10:44 | PC.NURSE ---
High flow nasal cannula removed. 3 liters o2 applied. Will check o2, 15 minutes. Patient states he wants to sign out AMA
--- NOTE | 2020-07-25 12:59 | PC.NURSE ---
Patient signed AMA. IV, telemetry removed. Wheelchair to personal vehicle.
--- NOTE | 2020-07-29 09:22 | PC.NURSE ---
Unable to contact for discharge call back.
== END 2020-07-25 12:45 | disposition left against medical advice (07) | DRG 189 ==
LOC: CHSED 04:00 → CHS2ND 07-24 12:59
PROVIDERS: Emergency Medicine; Nurse Practitioner; Admitting Provider Emergency Medicine; Emergency Provider Emergency Medicine; PCP Family Medicine; Visit Provider Emergency Medicine
DX: J96.01 Acute respiratory failure with hypoxia (principal); J18.9 Pneumonia, unspecified organism; I13.0 Hypertensive heart and chronic kidney disease with heart failure and stage 1 through stage 4 chronic kidney disease, or unspecified chronic kidney disease; N17.9 Acute kidney failure, unspecified; J96.02 Acute respiratory failure with hypercapnia; I50.9 Heart failure, unspecified; N18.9 Chronic kidney disease, unspecified; E87.5 Hyperkalemia; E11.22 Type 2 diabetes mellitus with diabetic chronic kidney disease; E11.65 Type 2 diabetes mellitus with hyperglycemia; J44.9 Chronic obstructive pulmonary disease, unspecified; J45.909 Unspecified asthma, uncomplicated; Z79.4 Long term (current) use of insulin; Z99.81 Dependence on supplemental oxygen
CPT/HCPCS: 36415; 36600; 71045; 71046; 80053; 81001; 82805; 82948; 83036; 83605; 83735; 83880; 84484; 85025; 85027; 85610; 85730; 86140; 87040; 87086; 87502; 93005; 94640; 96365; 96366; 96372; 96375; 96376; 99285; A9270; C9803; G0378; J1650; J1815; J1940; J1956; J2405; J2930; U0003; U0005

== ENCOUNTER 2020-08-04 07:27 | Outpatient (CLI) | payer MEDICARE, SELFPAY ==
[2020-08-04 08:17] LABS: Anion Gap 7 mmol/L (8-16); Blood Urea Nitrogen 29 mg/dL (7-18); Carbon Dioxide 32 mmol/L (21-32); Chloride 103 mmol/L (98-108); Estimated Glomerular Filt Rate 48; Glucose 124 mg/dL (70-99); Osmolality Calculated 300 mOsm/kg (285-295); Sodium 142 mmol/L (136-145)
== END 2020-08-04 07:28 | disposition home or self-care (01) ==
LOC: CHSLAB 07:29
PROVIDERS: PCP Family Medicine; Visit Provider Family Medicine
DX: N18.30 Chronic kidney disease, stage 3 unspecified (principal); N13.9 Obstructive and reflux uropathy, unspecified
CPT/HCPCS: 36415; 80048; 84153